=== PATIENT | male | born 1945 ===

== ENCOUNTER 2020-04-03 08:09 | Outpatient (REF) | payer SELFPAY ==
--- NOTE | 2020-04-03 08:50 | MHC.AU.P13 ---
Hearing Instrument Follow-Up- Binaural Date of Visit: 04/03/2020 Right Ear: Radio Board Operator Announcer: Phonak Model: Audeo B50-R Serial Number: [id number] Warranty: 07/28/2020 Service Plan: 07/28/2020 Battery Size: Rechargeable Color: Champagne Retail Advertising Sales Manager: 2xS Type of Dome: Large Open Type of Wax Guard: Cerustop Left Ear: Radio Board Operator Announcer: Phonak Model: Audeo B50-R Serial Number: [id number] Warranty: 07/28/2020 Service Plan: 07/28/2020 Battery Size: Rechargeable Color: Champagne Retail Advertising Sales Manager: 2xS Type of Dome: Large Open Type of Wax Guard: Cerustop Follow-Up Summary: Patient arrives for maintenance. He reports an occasional clicking sound from the right instrument. As a precaution, receivers were replaced on both instruments. Domes replaced. Microphones vacuumed. Hearing aids are amplifying clearly. Patient requested a volume increase. Overall gain increased by 2 steps. Patient was pleased with the change. He reports he is returning to [place] May 28. Discussed that his warranty is up on 07/28/2020, and it would be advisable to send them out for Clean & Test before the end of warranty, as [employer] typically puts new rechargeable batteries in them. He will make an appointment for April to drop them off and be fit with a loaner pair. Recommendations: Recommendations: Please contact our clinic with any questions or concerns. Diagnosis Code(s): Primary Diagnosis: H90.3 Bilateral Sensorineural Hearing Loss Services Performed: Assorted Hearing Aid Service: No Charge Visit Signature: Provider: Irena Hamilton, [facility]
== END 2020-04-03 08:10 | disposition home or self-care (01) ==
LOC: HO.HAP 08:09
PROVIDERS: Visit Provider Internal Medicine
DX: Z46.1 Encounter for fitting and adjustment of hearing aid (principal)
CPT/HCPCS: 92700

== ENCOUNTER 2020-05-09 08:06 | Outpatient (REF) | payer SELFPAY ==
--- NOTE | 2020-05-09 09:42 | MHC.AU.P13 ---
Hearing Instrument Follow-Up- Binaural Date of Visit: 05/09/20 Right Ear: Cigar Making Machine Supervisor: Phonak Model: Audeo B50-R Serial Number: [id number] Warranty: 07/28/2020 Service Plan: 07/28/2020 Battery Size: Rechargeable Color: Champagne Residential Mortgage Underwriter: 2xS Type of Dome: Large Open Type of Wax Guard: Cerustop Dispensed By: [facility] Date of Fittin05/06/2017 Left Ear: Cigar Making Machine Supervisor: Phonak Model: Audeo B50-R Serial Number: [id number] Warranty: 07/28/2020 Service Plan: 07/28/2020 Battery Size: Rechargeable Color: Champagne Residential Mortgage Underwriter: 2xS Type of Dome: Large Open Type of Wax Guard: Cerustop Dispensed By: [facility] Date of Fittin05/06/2017 Follow-Up Summary: Patient's hearing aids are going out of warranty in June 2020. He would like to send them out for a Clean & Test before the warranty expires. He was loaned a pair of [employer] Audeo [id number] (#[id number], [id number]). His pair of Phonak Audeo B50-R was sent to [employer]. Recommendations: Patient will be contacted when his hearing aids have returned. Diagnosis Code(s): Primary Diagnosis: H90.3 Bilateral Sensorineural Hearing Loss Services Performed: Assorted Hearing Aid Service: No Charge Visit Signature: Provider: Irena Hamilton, [facility]
== END 2020-05-09 08:07 | disposition home or self-care (01) ==
LOC: HO.HAP 08:06
PROVIDERS: PCP Internal Medicine; Referring Provider Internal Medicine; Visit Provider Internal Medicine
DX: Z13.89 Encounter for screening for other disorder (principal)
CPT/HCPCS: 92700

== ENCOUNTER 2020-05-21 09:54 | Outpatient (REF) | payer SELFPAY | END 2020-05-21 09:55 | disposition home or self-care (01) | LOC: HO.HAP 09:54 | PROVIDERS: PCP Internal Medicine; Referring Provider Internal Medicine; Visit Provider Internal Medicine | DX: Z13.89 Encounter for screening for other disorder (principal) | CPT/HCPCS: 92700 ==

== ENCOUNTER 2020-10-31 08:14 | Outpatient (REF) | payer SELFPAY ==
--- NOTE | 2020-10-31 09:07 | MHC.AU.HFU ---
Hearing Instrument Follow-Up- Binaural Date of Visit: 10/31/20 Right Ear: Trampoline Team Coach: Phonak Model: Mazoomeo B50-R Serial Number: [id number] Repair Warranty: 07/28/2020 Battery Size: Rechargeable Color: Champagne Mental Health Nurse Practitioner: 2xS Type of Dome: Large Open Type of Wax Guard: Cerustop Left Ear: Trampoline Team Coach: Phonak Model: Mazoomeo B50-R Serial Number: [id number] Repair Warranty: 07/28/2020 Battery Size: Rechargeable Color: Champagne Mental Health Nurse Practitioner: 2xS Type of Dome: Large Open Type of Wax Guard: Cerustop Follow-Up Summary: Patient arrived for hearing aid adjustment. He feels he needs a slight increase in overall volume. He feels his hearing has changed, as he noticed that he hears very little without his hearing aids on. Hearing aid maintenance performed. Domes and wax traps replaced. Microphones vacuumed. Hearing aids are amplifying clearly. Target gain was at 110%. Raised overall gain by 3 steps. Re-ran feedback test on left ear, due to slight whistling. Patient was pleased with the changes. Recommendations: Recommendations: Hearing instrument follow-up or maintenance as needed. Patient's last audio was in 2017. Since the patient has requested programming adjustments over the 110% target, it is a strong possibility that there have been hearing changes. Strongly recommended that the patient ask his doctor for an order for an updated audio. He reports that he has an appointment with his doctor soon and will ask for an order, but he will be returning to [place] soon for the rest of the spring. He will be back in [place] for the summer and fall. Diagnosis Code(s): Primary Diagnosis: H90.3 Bilateral Sensorineural Hearing Loss Signature: Provider: Irena Hamilton, [facility]
== END 2020-10-31 08:15 | disposition home or self-care (01) ==
LOC: HO.HAP 08:14
PROVIDERS: Visit Provider Internal Medicine
DX: Z13.89 Encounter for screening for other disorder (principal)

== ENCOUNTER 2021-05-02 08:15 | Outpatient (REF) | payer MEDICARE, SELFPAY ==
--- NOTE | 2021-05-02 12:36 | MHC.AU.AHA ---
Adult Audiological Evaluation Date of Visit: 05/02/21 Reason for Appointment: History of hearing loss with slight asymmetry (right side worse). Patient reports that while travelling in [place] years ago, he developed a significant ear infection in his right ear. Ever since this infection, he has noticed the hearing in his right ear has been worse than the left. Patient suspects there has been a decrease in his hearing since his last evaluation in 2017. Previous Hearing Test Results: At this clinic on 04/30/2017- Normal to severe/profound sensorineural hearing loss bilaterally, slightly worse in the right ear Ear History: Ear Deformity: None Reported Recent Ear Drainage: None Reported Recent Ear Pain: None Reported Family History of Hearing Loss?: Yes Recent Ear Infections: None Reported Previous Ear Surgery: None Reported Bothersome Tinnitus/Ringing/Noises in Ears: Both Ears Blocked/Full Sensation in Ear(s): None Reported Medical History: Medical History: Hypertension, GERD Hearing Instrument History- Right Ear: Consumer Loan Processor: I-Tech Model: PanvivaeEngage Mobility B50-R Serial Number: [id number] Battery Size: Rechargeable Repair Warranty: 07/28/2020 Service Plan: 07/28/2020 Dispensed By: [facility] Date of Fittin05/06/2017 Hearing Instrument History- Left Ear: Consumer Loan Processor: [employer]iWoundak Model: Panvivaeo B50-R Serial Number: [id number] Battery Size: Rechargeable Warranty: 07/28/2020 Service Plan: 07/28/2020 Dispensed By: [facility] Date of Fittin05/06/2017 Otoscopy: Right Ear: Unremarkable Left Ear: Unremarkable Tympanometry: Tympanometry performed due to: To assess integrity of the middle ear system Right Ear: Reduced Middle Ear Compliance (Type As) Left Ear: Normal Middle Ear System (Type A) Hearing Evaluation: Transducer(s) Used: Insert Earphones Method: Conventional Audiometry Stimuli Used: Pure Tones Right Ear: Description of Hearing: Normal steeply sloping to profound sensorineural hearing loss Left Ear: Description of Hearing: Normal steeply sloping to severe sensorineural hearing loss Speech Recognition Threshold (SRT): Method Used: Recorded Lists Stimuli Used: Spondee Words Right Ear: 30 dBHL Left Ear: 30 dBHL Word Discrimination: Method: Recorded Lists Word Lists Used: W-22 Right Ear: 64% at 85 dBHL Left Ear: 72% at 85 dBHL Most Comfortable Level (MCL): Right Ear: 85 dBHL Left Ear: 85 dBHL Comparison: Compared to most recent evaluation: High frequency thresholds in the right ear have decreased Recommendations: Audiological re-evaluation in one year. Hearing aid maintenance performed today. Hearing aid(s) reprogrammed with updated test results. Domes switched to Large Closed domes. Acoustic settings updated. Feedback manager architectural was re-run. Patient was pleased with the changes. Diagnosis: Primary Diagnosis: H90.3 Bilateral Sensorineural Hearing Loss Signature: Provider: Irena Hamilton, CCC-A
== END 2021-05-02 08:16 | disposition home or self-care (01) ==
LOC: HO.SH 08:15
PROVIDERS: Visit Provider Internal Medicine
DX: H91.93 Unspecified hearing loss, bilateral (principal)
CPT/HCPCS: 92557; 92567

== ENCOUNTER 2022-03-24 09:43 | Outpatient (REF) | payer SELFPAY ==
--- NOTE | 2022-03-24 13:48 | MHC.AU.HFU ---
Hearing Instrument Follow-Up- Left Hearing Aid Date of Visit: 03/24/22 Right Ear: Home Theater Experience Expert: Phonak Model: Audeo B50-R Serial Number: [id number] Repair Warranty: 07/28/2020 Battery Size: Rechargeable Color: Champagne Contract Programmer: 2xS Type of Dome: Large Closed Type of Wax Guard: Cerustop Dispensed By: [facility] Date of Fittin05/06/2017 Left Ear: Home Theater Experience Expert: Phonak Model: Audeo B50-R Serial Number: [id number] Repair Warranty: 07/28/2020 Battery Size: Rechargeable Color: Champagne Contract Programmer: 2xS Type of Dome: Large Closed Type of Wax Guard: Cerustop Dispensed By: [facility] Date of Fittin05/06/2017 Follow-Up Summary: Mamadou dropped off his left hearing aid reporting that it sounded weak. After inspection, the dome was noted to be partially plugged with wax. The hearing aid was thoroughly cleaned. The dome, wax guard, and retention tail were replaced and the microphones were vacuumed. A listening check demonstrated that the hearing aid is in good working order. Recommendations: Hearing instrument maintenance in 6 months, or sooner if needed. Please contact our clinic with any questions or concerns. Diagnosis Code(s): Primary Diagnosis: H90.3 Bilateral Sensorineural Hearing Loss Services Performed: LARRY Maintenance, Minor Repair (Quantity): 1 Signature: Provider: Elzbieta Allen CCC-A
== END 2022-03-24 09:44 | disposition home or self-care (01) ==
LOC: HO.HAP 09:43
PROVIDERS: Visit Provider Internal Medicine
DX: Z46.1 Encounter for fitting and adjustment of hearing aid (principal); H90.3 Sensorineural hearing loss, bilateral
CPT/HCPCS: 92700; 99499

== ENCOUNTER 2023-04-01 07:50 | Outpatient (REF) | payer MEDICARE, SELFPAY | END 2023-04-01 07:51 | disposition home or self-care (01) | LOC: HO.SH 07:50 | PROVIDERS: Visit Provider Internal Medicine | DX: H90.3 Sensorineural hearing loss, bilateral (principal) | CPT/HCPCS: 92557 ==

== ENCOUNTER 2023-04-01 08:50 | Outpatient (REF) | payer SELFPAY ==
--- NOTE | 2023-04-01 08:59 | MHC.AU.HA3 ---
Hearing Instrument Follow-Up- Binaural Date of Visit: 04/01/23 Right Ear: Model Samy, Color, Serial Number: Bettina Hankins B50-R SN: [id number] Color: Alice Convenience Store Clerk Repair Warranty: 07/28/2020 Convenience Store Clerk Loss and Damage Warranty: 07/28/2020 [facility] Service Plan: 07/28/2020 Battery Size: Rechargeable Orchid Hand/Slim Tube: 2xS Earmold/Dome/CShell/SlimTip:Large closed dome with retention tail Type of Wax Guard: CeruStop Dispensed By: [facility] Date of Fittin05/06/2017 Left Ear: Model Samy, Color, Serial Number: Bettina Hankins B50-R SN: [id number] Color: Alice Convenience Store Clerk Repair Warranty: 07/28/2020 Convenience Store Clerk Loss and Damage Warranty: 07/28/2020 [facility] Service Plan: 07/28/2020 Battery Size: Rechargeable Orchid Hand/Slim Tube: 2xS Earmold/Dome/CShell/SlimTip: Large closed dome with retention tail Type of Wax Guard: CeruStop Dispensed By: [facility] Date of Fittin05/06/2017 Follow-Up Summary: Mamadou returned for routine hearing aid maintenance following an updated hearing test (see separate report). Cleaned hearing aids. Vacuumed microphones. Ran through dehumidifier. Replaced domes, wax guards, and retention tails. Reran feedback manager entry with improvement in feedback curve for increase in high frequency amplification. No feedback noted in office. Reprogrammed to updated test. Discussed new hearing aids due to age of current pair. Mamadou lives in [place] 9 months out of the year. He leaves again in April. Due to time constraints, Mamadou has opted to wait to pursue new hearing aids. He will also look into a hearing aid benefit through his [employer] insurance. He knows he may have to go to a specific provider to utilize the benefit if there is one (if it is 3rd republican administered) and that his hearing test is valid for six months. Recommendations: Hearing instrument follow-up or maintenance as needed. Please contact our clinic with any questions or concerns. Diagnosis Code(s): Primary Diagnosis: H90.3 Bilateral Sensorineural Hearing Loss Signature: Provider: Johanne Glass, [facility]
== END 2023-04-01 08:51 | disposition home or self-care (01) ==
LOC: HO.HAP 08:50
PROVIDERS: PCP Internal Medicine; Visit Provider Internal Medicine
DX: Z46.1 Encounter for fitting and adjustment of hearing aid (principal); H90.3 Sensorineural hearing loss, bilateral
CPT/HCPCS: 92593